=== PATIENT | male | born 1980 | race American Indian/Alaskan Native ===

== ENCOUNTER 2018-05-06 18:11 | Emergency (ER) | payer SELFPAY ==
[2018-05-06 18:54] VITALS: BP 119/53
== END 2018-05-06 19:00 | disposition left against medical advice (07) ==
LOC: ED 18:11
DX: R07.89 Other chest pain (principal); Z53.21 Procedure and treatment not carried out due to patient leaving prior to being seen by health care provider

== ENCOUNTER 2018-07-28 18:04 | Emergency (ER) | payer SELFPAY | END 2018-07-28 18:39 | disposition left against medical advice (07) | LOC: ED 18:04 | DX: R11.0 Nausea (principal); R51 Headache; Z53.21 Procedure and treatment not carried out due to patient leaving prior to being seen by health care provider ==

== ENCOUNTER 2018-07-29 09:34 | Emergency (ER) | payer OTHER ==
--- NOTE | 2018-07-29 12:32 | Emergency Department Report ---
ED General Adult HPI - General Chief complaint: Upper Respiratory Infection Stated complaint: DIZZINESS/NAUSEA/MIGRAINE/FACE PRESSURE Time Seen by Provider: 07/29/18 12:28 Source: patient Mode of arrival: Ambulatory Limitations: No Limitations - History of Present Illness Initial comments: Patient is a 37-year-old -[place] male who presented with cough, congestion and headache for the past 3-4 days. Patient states that headache is associated with some facial pain. He does feel congested. He also has had some runny eyes. Patient has a history of migraines and states this is slightly different. Patient denies any fevers chills nausea vomiting or diarrhea. Severity scale (0 -10): 0 - Related Data Previous Rx's Medication Instructions Recorded Last Taken Type Acetaminophen [Tylenol Arthritis] 650 mg PO Q6HR PRN #30 tablet.er 03/11/18 Unknown Rx Ibuprofen [Motrin] 600 mg PO Q8H PRN #30 tablet 03/11/18 Unknown Rx Metoclopramide [Reglan] 10 mg PO QID PRN #30 tablet 03/11/18 Unknown Rx Amoxicillin/Potassium Clav 1 each PO BID #14 tablet 07/29/18 Unknown Rx [Augmentin 875-125 Tablet] Fluticasone [Flonase] 1 spray NS QDAY #1 bottle 07/29/18 Unknown Rx Ibuprofen [Ibu] 800 mg PO Q8H PRN #20 tablet 07/29/18 Unknown Rx predniSONE [Deltasone] 20 mg PO QDAY #5 tab 07/29/18 Unknown Rx Allergies Allergy/AdvReac Type Severity Reaction Status Date / Time No Known Allergies Allergy Verified 07/28/18 18:06 ED Review of Systems ROS: Stated complaint: DIZZINESS/NAUSEA/MIGRAINE/FACE PRESSURE Other details as noted in HPI Comment: All other systems reviewed and negative ED Past Medical Hx - Past Medical History Previous Medical History?: Yes Hx Asthma: Yes Additional medical history: scoliosis - Surgical History Past Surgical History?: Yes Additional Surgical History: back surgery - Social History Smoking Status: Never Smoker Substance Use Type: Marijuana - Medications Home Medications: Home Medications Medication Instructions Recorded Confirmed Last Taken Type Acetaminophen [Tylenol Arthritis] 650 mg PO Q6HR PRN #30 tablet.er 03/11/18 Unk nown Rx Ibuprofen [Motrin] 600 mg PO Q8H PRN #30 tablet 03/11/18 Unknown Rx Metoclopramide [Reglan] 10 mg PO QID PRN #30 tablet 03/11/18 Unknown Rx Amoxicillin/Potassium Clav 1 each PO BID #14 tablet 07/29/18 Unknown Rx [Augmentin 875-125 Tablet] Fluticasone [Flonase] 1 spray NS QDAY #1 bottle 07/29/18 Unknown Rx Ibuprofen [Ibu] 800 mg PO Q8H PRN #20 tablet 07/29/18 Unknown Rx predniSONE [Deltasone] 20 mg PO QDAY #5 tab 07/29/18 Unknown Rx ED Physical Exam - General Limitations: No Limitations General appearance: alert, in no apparent distress - Head Head exam: Present: atraumatic, normocephalic - Eye Eye exam: Present: normal appearance, PERRL, EOMI - ENT ENT exam: Present: mucous membranes moist, other (maxillary sinus pain on palpation) - Neck Neck exam: Present: normal inspection - Respiratory Respiratory exam: Present: normal lung sounds bilaterally. Absent: respiratory distress, wheezes, rales, rhonchi - Cardiovascular Cardiovascular Exam: Present: regular rate, normal rhythm. Absent: systolic murmur, diastolic murmur, rubs, gallop - GI/Abdominal GI/Abdominal exam: Present: soft, normal bowel sounds. Absent: distended, tenderness, guarding, rebound - Rectal Rectal exam: Present: deferred - Extremities Exam Extremities exam: Present: normal inspection - Back Exam Back exam: Present: normal inspection - Neurological Exam Neurological exam: Present: alert, oriented X3 - Psychiatric Psychiatric exam: Present: normal affect, normal mood - Skin Skin exam: Present: warm, dry, intact, normal color. Absent: rash ED Course Vital Signs 07/29/18 09:39 Temperature 97.7 F Pulse Rate 90 Respiratory 16 Rate Blood Pressure 117/75 O2 Sat by Pulse 94 Oximetry ED Medical Decision Making - Medical Decision Making Patient be treated for acute sinusitis and we discharged home. Critical care attestation.: If time is entered above; I have spent that time in minutes in the direct care of this critically ill patient, excluding procedure time. ED Disposition Clinical Impression: Acute sinusitis Qualifiers: Sinusitis location: unspecified location Recurrence: non-recurrent Qualified Code(s): J01.90 - Acute sinusitis, unspecified Disposition: TO HOME OR SELFCARE Is pt being admited?: No Does the pt Need Aspirin: No Condition: Stable Instructions: Sinusitis (ED) Referrals: MARIELA ERICKSON MD [Primary Care Provider] - 3-5 Days Time of Disposition: 12:32
[2018-07-29 12:49] VITALS: BP 114/82
== END 2018-07-29 12:55 | disposition home or self-care (01) ==
LOC: ED 09:34
DX: J01.90 Acute sinusitis, unspecified (principal); J45.909 Unspecified asthma, uncomplicated; Z79.899 Other long term (current) drug therapy
CPT/HCPCS: 99282